=== PATIENT | male | born 1995 | race Native Hawaiian/Other Pacific Islander ===

== ENCOUNTER 2024-02-13 14:56 | Emergency (ER) | payer OTHER ==
[~2024-02-13] VITALS: Ht 177.8 cm; Wt 76.7 kg
[2024-02-13 16:45] VITALS: BP 146/101
== END 2024-02-13 16:45 | disposition home or self-care (01) ==
LOC: ED 14:56
DX: H92.02 Otalgia, left ear (principal); Y04.0XXA Assault by unarmed brawl or fight, initial encounter
CPT/HCPCS: 99283